=== PATIENT | male | born 1950 | race Asian ===

== ENCOUNTER 2018-06-27 08:42 | Day surgery (SDC) | payer OTHER, MEDICARE ==
[2018-06-21 14:57] VITALS: BMI 27.3
[2018-06-27 09:10] VITALS: TEMP 97.6
[2018-06-27] MEDS ORDERED: PHENYLEPHRINE HCL 10 MG/1 ML SINGLE DOSE VIAL ONE (10:54)
[2018-06-27 12:28] VITALS: BP 116/65; PULSE 60
--- NOTE | 2018-06-28 12:25 | PATH ---
Surgical Pathology Report Patient Name: LIAT RUIZ [facility]. Rec. #: [id number] /Age/Gender: 1950 (Age: 68) / M Account: [id number] Location: U-ENDOSCOPY Taken: 06/27/2018 Received: 06/27/2018 Reported: 06/28/2018 Physicians: Liban Bullock D.O. Specimen(s) Received A: SIGMOID POLYP B: DESCENDING COLON POLYP C: SPLENIC FLEXURE BIOPSY POLYPS D: PROXIMAL TRANSVERSE COLON POLYPS E: MID TRANSVERSE COLON POLYP F: POLYP SIGMOID #1 G: RECTAL POLYPS Clinical History Colon screening Postop diagnosis: Colon polyps, hemorrhoids Final Diagnosis A. SIGMOID COLON, POLYP, BIOPSY: TUBULAR ADENOMA. B. DESCENDING COLON, POLYP, BIOPSY: TUBULAR ADENOMA. C. COLON, SPLENIC FLEXURE, POLYPS, BIOPSY: TUBULAR ADENOMA(S). D. PROXIMAL TRANSVERSE COLON, POLYPS, POLYPECTOMY: TUBULAR ADENOMA(S). E. MID TRANSVERSE COLON, POLYP, BIOPSY: TUBULAR ADENOMA. F. SIGMOID COLON, POLYP, POLYPECTOMY: TUBULAR ADENOMA G. RECTUM, POLYPS, BIOPSY: HYPERPLASTIC POLYP(S). Electronically Signed Lena Rivers M.D. Gross Description A. Received in formalin, labeled "sigmoid polyp" are 2 webster, irregular portions of soft tissue measuring 0.1 and 0.3 cm. in greatest dimension. The specimens are submitted in toto in one cassette. B. Received in formalin, labeled "polyp descending colon" is a webster, irregular portion of soft tissue measuring 0.5 cm. in greatest dimension. The specimen is submitted in toto in one cassette. C. Received in formalin, labeled "polyps splenic flexure" are 2 webster, irregular portions of soft tissue measuring 0.2 and 0.3 cm. in greatest dimension. The specimens are submitted in toto in one cassette. D. Received in formalin, labeled "polyp proximal transverse colon" are 3 webster, irregular portions of soft tissue ranging from 0.2-0.3 cm. in greatest dimension. The specimens are submitted in toto in one cassette. E. Received in formalin, labeled "biopsy mid transverse colon polyp" is a webster, irregular portion of soft tissue measuring 0.4 cm. in greatest dimension. The specimen is submitted in toto in one cassette. F. Received in formalin, labeled "sigmoid polyp" is a webster, irregular portion of soft tissue measuring 0.3 cm. in greatest dimension. The specimen is submitted in toto in one cassette. G. Received in formalin, labeled "biopsy rectal polyps" are 4 webster, irregular portions of soft tissue ranging from 0.2-0.3 cm. in greatest dimension. The specimens are submitted in toto in one cassette. 06/27/2018 [facility]06/27/2018
== END 2018-06-27 11:25 | disposition home or self-care (01) ==
LOC: JASU-ENDO 08:42
PROVIDERS: ATTEND Internal Medicine Gastroenterology
PROC: 0DBL8ZX Excision of Transverse Colon, Via Natural or Artificial Opening Endoscopic, Diagnostic (ICD-10-PCS; 2018-06-27)
PROC: 0DBN8ZX Excision of Sigmoid Colon, Via Natural or Artificial Opening Endoscopic, Diagnostic (ICD-10-PCS; 2018-06-27)
PROC: 0DBP8ZX Excision of Rectum, Via Natural or Artificial Opening Endoscopic, Diagnostic (ICD-10-PCS; 2018-06-27)
PROC: 0DBM8ZX Excision of Descending Colon, Via Natural or Artificial Opening Endoscopic, Diagnostic (ICD-10-PCS; principal; 2018-06-27 10:00)
DX: Z12.11 Encounter for screening for malignant neoplasm of colon (principal); K62.1 Rectal polyp; K64.8 Other hemorrhoids; D12.0 Benign neoplasm of cecum; D12.4 Benign neoplasm of descending colon; D12.5 Benign neoplasm of sigmoid colon; D12.3 Benign neoplasm of transverse colon
CPT/HCPCS: 88305-TC

== ENCOUNTER 2022-01-27 04:13 | Day surgery (SDC) | payer OTHER ==
[2022-01-21 11:32] VITALS: BMI 26.2
[2022-01-27] MEDS ORDERED: LIDOCAINE 1%/EPI 1:100000 (20 ML MULTI DOSE VIAL) ONE (07:13)
[2022-01-27] MEDS ORDERED: LIDOCAINE 1%/EPI 1:100000 (20 ML MULTI DOSE VIAL) IJ ONE ×3 (07:28→08:22)
[2022-01-27] MEDS ORDERED: FENTANYL CITRATE/PF 50 MCG/ML VIAL ONE ×5 (07:52→10:15)
[2022-01-27] MEDS ORDERED: MIDAZOLAM HCL 2 MG/2 ML SINGLE DOSE VIAL ONE (07:52)
[2022-01-27] MEDS ORDERED: ROCURONIUM BROMIDE 50 MG/5 ML SYRINGE ONE ×2 (07:53)
[2022-01-27] MEDS ORDERED: SUCCINYLCHOLINE CHLORIDE 200 MG/10 ML SYRINGE ONE (07:53)
[2022-01-27] MEDS ORDERED: PROPOFOL 20 ML ONE ×2 (07:53)
[2022-01-27] MEDS ORDERED: oxyCODONE HCL 5 MG TABLET PO PRN (09:53)
[2022-01-27] MEDS ORDERED: ONDANSETRON 4 MG/2 ML VIAL IVPUSH PRN (09:53)
[2022-01-27] MEDS ORDERED: PROMETHAZINE HCL 25 MG/1 ML VIAL IVPB PRN (09:53)
[2022-01-27] MEDS ORDERED: LACTATED RINGERS SOLUTION 1,000 ML IV SCH (10:00)
[2022-01-27] MEDS ORDERED: FENTANYL CITRATE/PF 50 MCG/ML VIAL IVPUSH PRN (11:02)
[2022-01-27 13:10] VITALS: BP 124/60; PULSE 64; TEMP 96.7
== END 2022-01-27 13:30 | disposition home or self-care (01) ==
LOC: JASU-SURG 04:13
PROVIDERS: ATTEND Otolaryngology
PROC: 0KB30ZX Excision of Left Neck Muscle, Open Approach, Diagnostic (ICD-10-PCS; principal; 2022-01-27 08:00)
DX: C85.11 Unspecified B-cell lymphoma, lymph nodes of head, face, and neck (principal); E11.9 Type 2 diabetes mellitus without complications
CPT/HCPCS: 82962; 88305-TC; 94760

== ENCOUNTER 2022-05-13 07:06 | Day surgery (SDC) | payer OTHER ==
[2022-05-13] MEDS ORDERED: SODIUM CHLORIDE 250 ML IV ONE (09:00)
[2022-05-13] MEDS ORDERED: DIPHENHYDRAMINE 25 MG in SODIUM CHLORIDE 50 ML IVPB ONE (09:30)
[2022-05-13] MEDS ORDERED: ACETAMINOPHEN 325 MG TABLET (FP) PO ONE (09:30)
[2022-05-13 09:39] LABS: BASO % 1.3 % (0-2.0); HEMATOCRIT 44.4 % (35.4-49); HEMOGLOBIN 14.5 GM/dL (11.7-16.9); LYMPH % 25.4 % (8-40); MCH 27.6 pg (25.7-33.7); MCHC 32.8 g/dl (32.0-35.9); MEAN CELL VOLUME 84.3 fl (80-96); MEAN PLT VOLUME 7.2 fl (7.5-11.1); MONO % 12.5 % (3.8-10.2); NEUT % 54.8 % (42.8-82.8); PLATELET COUNT 256 10^3/uL (134-434); RBC 5.26 M/mm3 (4.00-5.60); WHITE BLOOD COUNT 8.9 K/mm3 (4.0-10.0)
[2022-05-13 10:00] LABS: MAGNESIUM 1.8 mg/dL (1.8-2.4)
[2022-05-13] MEDS ORDERED: RITUXIMAB-ABBS 500 MG, RITUXIMAB-ABBS 164 MG in SODIUM CHLORIDE 597.6 ML IVPB ONE (10:00)
[2022-05-13 10:02] LABS: BLOOD UREA NITROGEN 18.5 mg/dL (7-18); CALCIUM 9.9 mg/dL (8.5-10.1)
[2022-05-13 10:04] LABS: CREATININE 1.2 mg/dL (0.55-1.3); URIC ACID 4.1 mg/dL (2.6-7.2)
[2022-05-13 10:05] LABS: BILIRUBIN,DIRECT 0.1 mg/dL (0.0-0.2)
[2022-05-13 10:06] LABS: TOT PROT 8.2 g/dl (6.4-8.2)
[2022-05-13 10:07] LABS: BILIRUBIN,TOTAL 0.5 mg/dL (0.2-1)
[2022-05-13 16:54] VITALS: TEMP 97.7
[2022-05-13 17:01] VITALS: BP 121/53; PULSE 84; RESP 18
== END 2022-05-13 15:45 | disposition home or self-care (01) ==
LOC: JONCCHEMO 07:06
PROVIDERS: ATTEND Internal Medicine Hematology & Oncology
PROC: 3E03305 Introduction of Other Antineoplastic into Peripheral Vein, Percutaneous Approach (ICD-10-PCS; principal; 2022-05-13)
PROC: 3E033GC Introduction of Other Therapeutic Substance into Peripheral Vein, Percutaneous Approach (ICD-10-PCS; 2022-05-13)
PROC: 3E0337Z Introduction of Electrolytic and Water Balance Substance into Peripheral Vein, Percutaneous Approach (ICD-10-PCS; 2022-05-13)
DX: Z51.11 Encounter for antineoplastic chemotherapy (principal); C85.80 Other specified types of non-Hodgkin lymphoma, unspecified site
CPT/HCPCS: 36415; 80048; 80076; 83615; 83735; 84550; 85025; 96375; 96413; 96415; Q5115

== ENCOUNTER 2022-05-20 07:40 | Day surgery (SDC) | payer OTHER ==
[2022-05-20] MEDS ORDERED: SODIUM CHLORIDE 250 ML IV ONE (09:00)
[2022-05-20] MEDS ORDERED: ACETAMINOPHEN 325 MG TABLET (FP) PO ONE (09:30)
[2022-05-20] MEDS ORDERED: DIPHENHYDRAMINE 25 MG in SODIUM CHLORIDE 50 ML IVPB ONE (09:30)
[2022-05-20] MEDS ORDERED: DEXAMETHASONE SOD PHOSPHATE 20 MG/5 ML VIAL IVPB ONE (09:56)
[2022-05-20] MEDS ORDERED: RITUXIMAB-ABBS 500 MG, RITUXIMAB-ABBS 164 MG in SODIUM CHLORIDE 597.6 ML IVPB ONE (10:00)
[2022-05-20 10:36] VITALS: RESP 18
[2022-05-20 10:56] LABS: BASO % 1.3 % (0-2.0); EOS % 6.8 % (0-4.5); HEMATOCRIT 45.7 % (35.4-49); HEMOGLOBIN 14.9 GM/dL (11.7-16.9); LYMPH % 26.8 % (8-40); MCH 27.2 pg (25.7-33.7); MCHC 32.6 g/dl (32.0-35.9); MEAN CELL VOLUME 83.4 fl (80-96); MEAN PLT VOLUME 7.5 fl (7.5-11.1); MONO % 11.4 % (3.8-10.2); NEUT % 53.7 % (42.8-82.8); PLATELET COUNT 311 10^3/uL (134-434); RBC 5.48 M/mm3 (4.00-5.60); RDW 15.9 % (11.9-15.9); WHITE BLOOD COUNT 9.5 K/mm3 (4.0-10.0)
[2022-05-20 11:18] LABS: MAGNESIUM 1.9 mg/dL (1.8-2.4)
[2022-05-20 11:19] LABS: BLOOD UREA NITROGEN 13.4 mg/dL (7-18)
[2022-05-20 11:21] LABS: CREATININE 1.1 mg/dL (0.55-1.3); URIC ACID 4.3 mg/dL (2.6-7.2)
[2022-05-20 11:22] LABS: BILIRUBIN,DIRECT 0.1 mg/dL (0.0-0.2)
[2022-05-20 11:23] LABS: TOT PROT 8.3 g/dl (6.4-8.2)
[2022-05-20 11:24] LABS: BILIRUBIN,TOTAL 0.5 mg/dL (0.2-1)
[2022-05-20] MEDS ORDERED: DEXAMETHASONE INJECTION 8 MG in SODIUM CHLORIDE 50 ML IVPUSH ONE (12:00)
[2022-05-20] MEDS ORDERED: INSULIN (NOVOLOG) ASPART 100 UNITS/ML 10ML VIAL SQ ONE (17:53)
[2022-05-20 18:18] VITALS: BP 112/53; PULSE 73; TEMP 97.5
== END 2022-05-20 18:15 | disposition home or self-care (01) ==
LOC: JONCCHEMO 07:40
PROVIDERS: ATTEND Internal Medicine Hematology & Oncology
DX: Z51.11 Encounter for antineoplastic chemotherapy (principal); C85.80 Other specified types of non-Hodgkin lymphoma, unspecified site
CPT/HCPCS: 36415; 80048; 80076; 82962; 83615; 83735; 84550; 85025; 96375; 96413; 96415; J1100; Q5115

== ENCOUNTER 2022-05-27 08:37 | Day surgery (SDC) | payer OTHER ==
[2022-05-27] MEDS ORDERED: SODIUM CHLORIDE 250 ML IV ONE (09:00)
[2022-05-27] MEDS ORDERED: DEXAMETHASONE SODIUM PHOSPHATE 8 MG, DIPHENHYDRAMINE 25 MG in SODIUM CHLORIDE 100 ML IVPB ONE (09:30)
[2022-05-27] MEDS ORDERED: ACETAMINOPHEN 325 MG TABLET (FP) PO ONE (09:30)
[2022-05-27 09:43] LABS: BASO % 1.2 % (0-2.0); EOS % 6.4 % (0-4.5); HEMATOCRIT 44.5 % (35.4-49); HEMOGLOBIN 14.8 GM/dL (11.7-16.9); LYMPH % 26.9 % (8-40); MCHC 33.2 g/dl (32.0-35.9); MEAN CELL VOLUME 84.3 fl (80-96); NEUT % 56.5 % (42.8-82.8); PLATELET COUNT 298 10^3/uL (134-434); RBC 5.28 M/mm3 (4.00-5.60); RDW 16.2 % (11.9-15.9); WHITE BLOOD COUNT 9.6 K/mm3 (4.0-10.0)
[2022-05-27] MEDS ORDERED: RITUXIMAB-ABBS 500 MG, RITUXIMAB-ABBS 164 MG in SODIUM CHLORIDE 597.6 ML IVPB ONE (10:00)
[2022-05-27 11:03] LABS: BLOOD UREA NITROGEN 15.9 mg/dL (7-18); MAGNESIUM 2.2 mg/dL (1.8-2.4)
[2022-05-27 11:06] LABS: BILIRUBIN,DIRECT 0.2 mg/dL (0.0-0.2); CREATININE 1.2 mg/dL (0.55-1.3)
[2022-05-27 11:07] LABS: BILIRUBIN,TOTAL 0.6 mg/dL (0.2-1)
[2022-05-27 15:05] VITALS: RESP 18; TEMP 98.1
[2022-05-27 16:45] VITALS: BP 112/64; PULSE 77
== END 2022-05-27 16:53 | disposition home or self-care (01) ==
LOC: JONCCHEMO 08:37
PROVIDERS: ATTEND Internal Medicine Hematology & Oncology
DX: Z51.11 Encounter for antineoplastic chemotherapy (principal); C85.80 Other specified types of non-Hodgkin lymphoma, unspecified site
CPT/HCPCS: 36415; 80048; 80076; 82962; 83615; 83735; 84550; 85025; 96367; 96413; 96415; Q5115

== ENCOUNTER 2022-06-03 08:24 | Day surgery (SDC) | payer OTHER ==
[2022-06-03] MEDS ORDERED: SODIUM CHLORIDE 250 ML IV ONE (09:00)
[2022-06-03 09:05] LABS: BASO % 0.9 % (0-2.0); EOS % 6.4 % (0-4.5); HEMATOCRIT 42.1 % (35.4-49); HEMOGLOBIN 13.9 GM/dL (11.7-16.9); LYMPH % 29.2 % (8-40); MCH 27.6 pg (25.7-33.7); MCHC 32.9 g/dl (32.0-35.9); MEAN PLT VOLUME 7.6 fl (7.5-11.1); MONO % 7.8 % (3.8-10.2); NEUT % 55.7 % (42.8-82.8); PLATELET COUNT 279 10^3/uL (134-434); RBC 5.02 M/mm3 (4.00-5.60); RDW 16.3 % (11.9-15.9); WHITE BLOOD COUNT 9.7 K/mm3 (4.0-10.0)
[2022-06-03 09:26] LABS: BLOOD UREA NITROGEN 10.2 mg/dL (7-18); CALCIUM 9.7 mg/dL (8.5-10.1)
[2022-06-03 09:27] LABS: ALBUMIN 3.6 g/dl (3.4-5.0)
[2022-06-03 09:29] LABS: BILIRUBIN,DIRECT 0.1 mg/dL (0.0-0.2); URIC ACID 3.9 mg/dL (2.6-7.2)
[2022-06-03] MEDS ORDERED: ACETAMINOPHEN 325 MG TABLET (FP) PO ONE (09:30)
[2022-06-03] MEDS ORDERED: DEXAMETHASONE SODIUM PHOSPHATE 8 MG, DIPHENHYDRAMINE 25 MG in SODIUM CHLORIDE 100 ML IVPB ONE (09:30)
[2022-06-03 09:31] LABS: BILIRUBIN,TOTAL 0.2 mg/dL (0.2-1); TOT PROT 7.4 g/dl (6.4-8.2)
[2022-06-03] MEDS ORDERED: RITUXIMAB-ABBS 500 MG, RITUXIMAB-ABBS 164 MG in SODIUM CHLORIDE 597.6 ML IVPB ONE (10:00)
[2022-06-03 15:12] VITALS: PULSE 69; TEMP 98.2
[2022-06-03 17:28] VITALS: BP 116/60; RESP 20
== END 2022-06-03 16:40 | disposition home or self-care (01) ==
LOC: JONCCHEMO 08:24
PROVIDERS: ATTEND Internal Medicine Hematology & Oncology
DX: Z51.11 Encounter for antineoplastic chemotherapy (principal); C85.80 Other specified types of non-Hodgkin lymphoma, unspecified site
CPT/HCPCS: 36415; 80048; 80076; 82962; 83615; 83735; 84550; 85025; 96361; 96365; 96413; 96415; Q5115

== ENCOUNTER 2022-07-01 07:51 | Day surgery (SDC) | payer OTHER ==
[2022-07-01 09:08] LABS: BASO % 1.4 % (0-2.0); EOS % 6.4 % (0-4.5); HEMATOCRIT 43.3 % (35.4-49); HEMOGLOBIN 14.2 GM/dL (11.7-16.9); LYMPH % 37.7 % (8-40); MCH 27.8 pg (25.7-33.7); MCHC 32.9 g/dl (32.0-35.9); MEAN CELL VOLUME 84.7 fl (80-96); MEAN PLT VOLUME 7.1 fl (7.5-11.1); MONO % 10.7 % (3.8-10.2); NEUT % 43.8 % (42.8-82.8); PLATELET COUNT 307 10^3/uL (134-434); RBC 5.12 M/mm3 (4.00-5.60); WHITE BLOOD COUNT 8.8 K/mm3 (4.0-10.0)
[2022-07-01 09:32] LABS: CALCIUM 10.1 mg/dL (8.5-10.1)
[2022-07-01 09:33] LABS: ALBUMIN 3.9 g/dl (3.4-5.0); BLOOD UREA NITROGEN 12.9 mg/dL (7-18)
[2022-07-01 09:35] LABS: BILIRUBIN,DIRECT 0.2 mg/dL (0.0-0.2); CREATININE 1.1 mg/dL (0.55-1.3); URIC ACID 3.6 mg/dL (2.6-7.2)
[2022-07-01 09:37] LABS: BILIRUBIN,TOTAL 0.5 mg/dL (0.2-1)
[2022-07-01] MEDS ORDERED: ACETAMINOPHEN 325 MG TABLET (FP) PO ONE (10:00)
[2022-07-01] MEDS ORDERED: SODIUM CHLORIDE 250 ML IV ONE (10:00)
[2022-07-01] MEDS ORDERED: DEXAMETHASONE SODIUM PHOSPHATE 8 MG, DIPHENHYDRAMINE 25 MG in SODIUM CHLORIDE 100 ML IVPB ONE (10:00)
[2022-07-01] MEDS ORDERED: RITUXIMAB ABBS IVPB ONE (10:30)
[2022-07-01] MEDS ORDERED: SODIUM CHLORIDE IVPB ONE (10:30)
[2022-07-01 15:26] VITALS: RESP 18; TEMP 98.3
[2022-07-01 15:45] VITALS: BP 112/55; PULSE 84
[2022-07-05 00:11] LABS: BETA-2-MICROGLOBULIN 1.6 mg/L (0.6-2.4)
[2022-07-05 21:06] LABS: IMMUNOGLOBULIN D 1.76 mg/dL (<14.11)
== END 2022-07-01 16:00 | disposition home or self-care (01) ==
LOC: JONCCHEMO 07:51
PROVIDERS: ATTEND Internal Medicine Hematology & Oncology
DX: C85.80 Other specified types of non-Hodgkin lymphoma, unspecified site (principal)
CPT/HCPCS: 36415; 80048; 80076; 82232; 82784; 82785; 83615; 83735; 84550; 85025; 86704; 87517; 96367; 96413; 96415; Q5115

== ENCOUNTER 2022-07-29 08:19 | Day surgery (SDC) | payer OTHER ==
[2022-07-29 08:38] LABS: BASO % 2.5 % (0-2.0); EOS % 8.5 % (0-4.5); HEMATOCRIT 45.2 % (35.4-49); HEMOGLOBIN 14.8 GM/dL (11.7-16.9); LYMPH % 37.9 % (8-40); MCH 27.9 pg (25.7-33.7); MCHC 32.7 g/dl (32.0-35.9); MEAN CELL VOLUME 85.5 fl (80-96); MONO % 10.8 % (3.8-10.2); NEUT % 40.3 % (42.8-82.8); PLATELET COUNT 297 10^3/uL (134-434); RBC 5.29 M/mm3 (4.00-5.60); WHITE BLOOD COUNT 8.1 K/mm3 (4.0-10.0)
[2022-07-29 08:56] LABS: ALBUMIN 3.7 g/dl (3.4-5.0); BLOOD UREA NITROGEN 12.3 mg/dL (7-18); CALCIUM 9.4 mg/dL (8.5-10.1)
[2022-07-29 08:59] LABS: BILIRUBIN,DIRECT 0.2 mg/dL (0.0-0.2); URIC ACID 3.5 mg/dL (2.6-7.2)
[2022-07-29 09:01] LABS: BILIRUBIN,TOTAL 0.4 mg/dL (0.2-1); TOT PROT 7.5 g/dl (6.4-8.2)
[2022-07-29] MEDS ORDERED: SODIUM CHLORIDE IVPB ONE (10:00)
[2022-07-29] MEDS ORDERED: RITUXIMAB ABBS IVPB ONE (10:00)
[2022-07-29] MEDS ORDERED: ACETAMINOPHEN 325 MG TABLET (FP) PO ONE (10:00)
[2022-07-29] MEDS ORDERED: SODIUM CHLORIDE 250 ML IV ONE (10:00)
[2022-07-29] MEDS ORDERED: DEXAMETHASONE SODIUM PHOSPHATE 8 MG, DIPHENHYDRAMINE 25 MG in SODIUM CHLORIDE 100 ML IVPB ONE (10:00)
[2022-07-29 17:23] VITALS: RESP 18; TEMP 97.8
[2022-07-29 17:29] VITALS: BP 130/60; PULSE 83
== END 2022-07-29 17:15 | disposition home or self-care (01) ==
LOC: JONCCHEMO 08:19
PROVIDERS: ATTEND Internal Medicine Hematology & Oncology
DX: Z51.11 Encounter for antineoplastic chemotherapy (principal); C85.80 Other specified types of non-Hodgkin lymphoma, unspecified site
CPT/HCPCS: 36415; 80048; 80076; 82232; 82784; 83615; 83735; 84550; 85025; 96367; 96413; 96415; Q5115

== ENCOUNTER 2022-08-26 07:25 | Day surgery (SDC) | payer OTHER ==
[2022-08-26] MEDS ORDERED: SODIUM CHLORIDE 250 ML IV ONE (09:00)
[2022-08-26] MEDS ORDERED: DEXAMETHASONE SODIUM PHOSPHATE 8 MG, DIPHENHYDRAMINE 25 MG in SODIUM CHLORIDE 100 ML IVPB ONE (09:30)
[2022-08-26] MEDS ORDERED: ACETAMINOPHEN 325 MG TABLET (FP) PO ONE (09:30)
[2022-08-26 09:53] LABS: EOS % 6.7 % (0-4.5); HEMATOCRIT 43.2 % (35.4-49); LYMPH % 31.3 % (8-40); MCH 27.8 pg (25.7-33.7); MCHC 32.3 g/dl (32.0-35.9); MEAN CELL VOLUME 85.9 fl (80-96); MEAN PLT VOLUME 7.2 fl (7.5-11.1); MONO % 15.9 % (3.8-10.2); NEUT % 42.1 % (42.8-82.8); PLATELET COUNT 494 10^3/uL (134-434); RBC 5.03 M/mm3 (4.00-5.60); RDW 16.2 % (11.9-15.9); WHITE BLOOD COUNT 9.5 K/mm3 (4.0-10.0)
[2022-08-26] MEDS ORDERED: RITUXIMAB-ABBS 500 MG, RITUXIMAB-ABBS 164 MG in SODIUM CHLORIDE 597.6 ML IVPB ONE (10:00)
[2022-08-26 10:20] LABS: ALBUMIN 3.4 g/dl (3.4-5.0); BLOOD UREA NITROGEN 11.7 mg/dL (7-18); CALCIUM 9.8 mg/dL (8.5-10.1); MAGNESIUM 2.1 mg/dL (1.8-2.4)
[2022-08-26 10:23] LABS: BILIRUBIN,DIRECT 0.2 mg/dL (0.0-0.2); CREATININE 1.1 mg/dL (0.55-1.3); URIC ACID 3.1 mg/dL (2.6-7.2)
[2022-08-26 10:24] LABS: BILIRUBIN,TOTAL 0.6 mg/dL (0.2-1)
[2022-08-26 10:25] LABS: TOT PROT 7.4 g/dl (6.4-8.2)
[2022-08-26 16:04] VITALS: TEMP 97.7
[2022-08-26 16:10] VITALS: BP 117/60; PULSE 71; RESP 16
== END 2022-08-26 16:17 | disposition home or self-care (01) ==
LOC: JONCCHEMO 07:25
PROVIDERS: ATTEND Internal Medicine Hematology & Oncology
DX: Z51.11 Encounter for antineoplastic chemotherapy (principal); C85.80 Other specified types of non-Hodgkin lymphoma, unspecified site
CPT/HCPCS: 36415; 80048; 80076; 82232; 82784; 83615; 83735; 84550; 85025; 96367; 96413; 96415; Q5115

== ENCOUNTER 2022-09-02 15:39 | Inpatient (IN) | payer OTHER ==
[2022-09-02 16:03] VITALS: BMI 26.7
[2022-09-02 18:05] LABS: BASO % 0.7 % (0-2.0); EOS % 2.8 % (0-4.5); HEMATOCRIT 43.9 % (35.4-49); HEMOGLOBIN 14.1 GM/dL (11.7-16.9); LYMPH % 11.3 % (8-40); MCH 27.6 pg (25.7-33.7); MCHC 32.1 g/dl (32.0-35.9); MEAN CELL VOLUME 86.1 fl (80-96); MEAN PLT VOLUME 7.4 fl (7.5-11.1); MONO % 9.3 % (3.8-10.2); NEUT % 75.9 % (42.8-82.8); PLATELET COUNT 322 10^3/uL (134-434); RDW 16.9 % (11.9-15.9); WHITE BLOOD COUNT 8.3 K/mm3 (4.0-10.0)
[2022-09-02 18:16] LABS: INR 1.88 (0.83-1.09); PROTHROMBIN TIME (PATIENT) 21.7 SEC (9.7-13.0)
[2022-09-02 18:19] LABS: ACTIVATED PTT 40.6 SECONDS (25.2-36.5)
[2022-09-02 18:32] LABS: CALCIUM 9.4 mg/dL (8.5-10.1)
[2022-09-02 18:33] LABS: ALBUMIN 3.5 g/dl (3.4-5.0); BLOOD UREA NITROGEN 12.8 mg/dL (7-18)
[2022-09-02 18:36] LABS: CREATININE 1.2 mg/dL (0.55-1.3)
[2022-09-02 18:37] LABS: TOT PROT 7.8 g/dl (6.4-8.2)
[2022-09-02 18:38] LABS: BILIRUBIN,TOTAL 0.6 mg/dL (0.2-1)
[2022-09-02] MEDS ORDERED: DEXAMETHASONE SOD PHOSPHATE 4 MG/1 ML VIAL IVPUSH ONE (20:05)
[2022-09-02] MEDS ORDERED: DEXAMETHASONE SOD PHOSPHATE 10 MG/1 ML VIAL ONE ×2 (21:07→21:25)
[2022-09-02] MEDS ORDERED: REMDESIVIR 200 MG in SODIUM CHLORIDE 250 ML IVPB ONE (22:39)
[2022-09-03] MEDS: metFORMIN HCL 500 MG TABLET (FP) PO SCH ×2 (06:48→16:02)
[2022-09-03] MEDS: APIXABAN 5 MG TABLET PO SCH ×2 (09:48→23:03)
[2022-09-03] MEDS: LOSARTAN POTASSIUM 25 MG TABLET PO SCH (09:48)
[2022-09-03] MEDS: EZETIMIBE 10 MG TABLET (FP) PO SCH (09:48)
[2022-09-03] MEDS: metoPROLOL SUCCINATE 25 MG TAB.SR.24H (FP) PO SCH ×2 (09:48→23:03)
[2022-09-03 12:26] LABS: EOS % 1.1 % (0-4.5); HEMATOCRIT 43.5 % (35.4-49); HEMOGLOBIN 14.1 GM/dL (11.7-16.9); LYMPH % 14.3 % (8-40); MCHC 32.5 g/dl (32.0-35.9); MEAN PLT VOLUME 7.5 fl (7.5-11.1); MONO % 11.4 % (3.8-10.2); NEUT % 69.2 % (42.8-82.8); PLATELET COUNT 318 10^3/uL (134-434); RBC 5.06 M/mm3 (4.00-5.60); RDW 16.7 % (11.9-15.9); WHITE BLOOD COUNT 6.3 K/mm3 (4.0-10.0)
[2022-09-03 12:51] LABS: BLOOD UREA NITROGEN 14.2 mg/dL (7-18); CALCIUM 9.7 mg/dL (8.5-10.1)
[2022-09-03 12:52] LABS: ALBUMIN 3.2 g/dl (3.4-5.0)
[2022-09-03 12:54] LABS: CREATININE 1.2 mg/dL (0.55-1.3)
[2022-09-03 12:55] LABS: BILIRUBIN,TOTAL 0.7 mg/dL (0.2-1); TOT PROT 7.4 g/dl (6.4-8.2)
[2022-09-03 13:12] LABS: ERYTHROCYTE SEDIMENTATION RATE 58 mm/hr (0-20)
[2022-09-03] MEDS ORDERED: DEXAMETHASONE SOD PHOSPHATE 4 MG/1 ML VIAL IVPUSH SCH (14:15)
[2022-09-03] MEDS: CEFTRIAXONE 1 GM in DEXTROSE 5%-WATER - 50 ML IVPB SCH (16:01)
[2022-09-03 16:05] LABS: PH,URINE 5.5 (5.0-8.0); URINE APPEARANCE CLEAR; URINE BILIRUBIN NEGATIVE (NEGATIVE); URINE COLOR YELLOW; URINE GLUCOSE (UA) NEGATIVE (NEGATIVE); URINE KETONE NEGATIVE (NEGATIVE); URINE LEUK ESTERASE NEGATIVE (NEGATIVE); URINE NITRITE NEGATIVE (NEGATIVE); URINE PROTEIN NEGATIVE (NEGATIVE)
[2022-09-03] MEDS: ATORVASTATIN CA 80 MG TABLET (FP) PO SCH (23:03)
[2022-09-04] MEDS: REMDESIVIR 100 MG in SODIUM CHLORIDE 250 ML IVPB SCH (03:28)
[2022-09-04] MEDS: metFORMIN HCL 500 MG TABLET (FP) PO SCH ×2 (06:20→17:29)
[2022-09-04] MEDS: EZETIMIBE 10 MG TABLET (FP) PO SCH (10:13)
[2022-09-04] MEDS: APIXABAN 5 MG TABLET PO SCH ×2 (10:13→22:08)
[2022-09-04] MEDS: metoPROLOL SUCCINATE 25 MG TAB.SR.24H (FP) PO SCH ×2 (10:13→22:08)
[2022-09-04] MEDS: LOSARTAN POTASSIUM 25 MG TABLET PO SCH (10:13)
[2022-09-04] MEDS: DEXAMETHASONE SOD PHOSPHATE 4 MG/1 ML VIAL IVPUSH SCH (10:13)
[2022-09-04] MEDS: CEFTRIAXONE 1 GM in DEXTROSE 5%-WATER - 50 ML IVPB SCH (10:13)
[2022-09-04 10:57] LABS: BASO % 1.7 % (0-2.0); EOS % 1.6 % (0-4.5); HEMATOCRIT 44.2 % (35.4-49); HEMOGLOBIN 14.1 GM/dL (11.7-16.9); LYMPH % 18.8 % (8-40); MCH 27.3 pg (25.7-33.7); MCHC 31.9 g/dl (32.0-35.9); MEAN CELL VOLUME 85.5 fl (80-96); MEAN PLT VOLUME 7.8 fl (7.5-11.1); MONO % 10.4 % (3.8-10.2); NEUT % 67.5 % (42.8-82.8); PLATELET COUNT 310 10^3/uL (134-434); RBC 5.17 M/mm3 (4.00-5.60); RDW 16.3 % (11.9-15.9); WHITE BLOOD COUNT 7.4 K/mm3 (4.0-10.0)
[2022-09-04 11:17] LABS: CALCIUM 9.3 mg/dL (8.5-10.1)
[2022-09-04 11:18] LABS: ALBUMIN 3.1 g/dl (3.4-5.0)
[2022-09-04 11:23] LABS: BILIRUBIN,TOTAL 0.3 mg/dL (0.2-1)
[2022-09-04] MEDS: ATORVASTATIN CA 80 MG TABLET (FP) PO SCH (22:08)
[2022-09-05] MEDS: REMDESIVIR 100 MG in SODIUM CHLORIDE 250 ML IVPB SCH (01:46)
[2022-09-05] MEDS: metFORMIN HCL 500 MG TABLET (FP) PO SCH ×2 (06:02→17:38)
[2022-09-05] MEDS: DEXAMETHASONE SOD PHOSPHATE 4 MG/1 ML VIAL IVPUSH SCH (10:10)
[2022-09-05] MEDS: CEFTRIAXONE 1 GM in DEXTROSE 5%-WATER - 50 ML IVPB SCH (10:12)
[2022-09-05] MEDS: APIXABAN 5 MG TABLET PO SCH ×2 (10:13→21:22)
[2022-09-05] MEDS: LOSARTAN POTASSIUM 25 MG TABLET PO SCH (10:13)
[2022-09-05] MEDS: EZETIMIBE 10 MG TABLET (FP) PO SCH (10:13)
[2022-09-05] MEDS: metoPROLOL SUCCINATE 25 MG TAB.SR.24H (FP) PO SCH ×2 (10:13→21:22)
[2022-09-05 16:48] VITALS: RESP 18
[2022-09-05] MEDS: ATORVASTATIN CA 80 MG TABLET (FP) PO SCH (21:22)
[2022-09-06] MEDS: REMDESIVIR 100 MG in SODIUM CHLORIDE 250 ML IVPB SCH (02:00)
[2022-09-06] MEDS: metFORMIN HCL 500 MG TABLET (FP) PO SCH ×2 (06:53→16:25)
[2022-09-06] MEDS: APIXABAN 5 MG TABLET PO SCH ×2 (10:05→21:23)
[2022-09-06] MEDS: EZETIMIBE 10 MG TABLET (FP) PO SCH (10:05)
[2022-09-06] MEDS: CEFTRIAXONE 1 GM in DEXTROSE 5%-WATER - 50 ML IVPB SCH (10:05)
[2022-09-06] MEDS: DEXAMETHASONE SOD PHOSPHATE 4 MG/1 ML VIAL IVPUSH SCH (10:06)
[2022-09-06] MEDS: LOSARTAN POTASSIUM 25 MG TABLET PO SCH (11:18)
[2022-09-06] MEDS: metoPROLOL SUCCINATE 25 MG TAB.SR.24H (FP) PO SCH ×2 (11:19→21:51)
[2022-09-06] MEDS: PANTOPRAZOLE 20 MG TABLET PO SCH (16:25)
[2022-09-06] MEDS: ATORVASTATIN CA 80 MG TABLET (FP) PO SCH (21:23)
[2022-09-07] MEDS: REMDESIVIR 100 MG in SODIUM CHLORIDE 250 ML IVPB SCH (01:48)
[2022-09-07] MEDS: metFORMIN HCL 500 MG TABLET (FP) PO SCH ×2 (06:36→16:58)
[2022-09-07] MEDS ORDERED: LOSARTAN POTASSIUM 25 MG TABLET PO SCH (10:00)
[2022-09-07] MEDS: EZETIMIBE 10 MG TABLET (FP) PO SCH (11:00)
[2022-09-07] MEDS: PANTOPRAZOLE 20 MG TABLET PO SCH (11:00)
[2022-09-07] MEDS: metoPROLOL SUCCINATE 25 MG TAB.SR.24H (FP) PO SCH (11:00)
[2022-09-07] MEDS: DEXAMETHASONE SOD PHOSPHATE 4 MG/1 ML VIAL IVPUSH SCH (11:01)
[2022-09-07] MEDS: APIXABAN 5 MG TABLET PO SCH (11:01)
[2022-09-07] MEDS: CEFTRIAXONE 1 GM in DEXTROSE 5%-WATER - 50 ML IVPB SCH (11:02)
[2022-09-07 13:10] LABS: BASO % 1.2 % (0-2.0); EOS % 2.1 % (0-4.5); HEMATOCRIT 46.9 % (35.4-49); HEMOGLOBIN 14.6 GM/dL (11.7-16.9); LYMPH % 26.5 % (8-40); MCH 27.1 pg (25.7-33.7); MCHC 31.2 g/dl (32.0-35.9); MEAN CELL VOLUME 86.9 fl (80-96); MEAN PLT VOLUME 8.2 fl (7.5-11.1); MONO % 7.7 % (3.8-10.2); NEUT % 62.5 % (42.8-82.8); PLATELET COUNT 338 10^3/uL (134-434); RDW 16.8 % (11.9-15.9); WHITE BLOOD COUNT 13.5 K/mm3 (4.0-10.0)
[2022-09-07 13:36] LABS: ALBUMIN 3.5 g/dl (3.4-5.0); CALCIUM 9.4 mg/dL (8.5-10.1)
[2022-09-07 13:39] LABS: CREATININE 1.2 mg/dL (0.55-1.3)
[2022-09-07 13:40] LABS: BILIRUBIN,TOTAL 0.5 mg/dL (0.2-1)
[2022-09-07 13:41] LABS: TOT PROT 7.5 g/dl (6.4-8.2)
[2022-09-07 17:03] VITALS: BP 141/63; PULSE 69; TEMP 97.8
== END 2022-09-07 17:37 | disposition home or self-care (01) | DRG 177 ==
LOC: JER 15:39 → JERBED 20:06 → J5S 09-03 05:42
PROVIDERS: ADMIT Internal Medicine; ATTEND Internal Medicine
PROC: XW033E5 Introduction of Remdesivir Anti-infective into Peripheral Vein, Percutaneous Approach, New Technology Group 5 (ICD-10-PCS; principal; 2022-09-02)
PROC: 3E0333Z Introduction of Anti-inflammatory into Peripheral Vein, Percutaneous Approach (ICD-10-PCS; 2022-09-02)
DX: U07.1 COVID-19 (principal); J12.82 Pneumonia due to coronavirus disease 2019; C85.90 Non-Hodgkin lymphoma, unspecified, unspecified site; E11.9 Type 2 diabetes mellitus without complications; I10 Essential (primary) hypertension; E78.5 Hyperlipidemia, unspecified; I25.10 Atherosclerotic heart disease of native coronary artery without angina pectoris; N40.0 Benign prostatic hyperplasia without lower urinary tract symptoms; R09.02 Hypoxemia; Z95.1 Presence of aortocoronary bypass graft
CPT/HCPCS: 0241U-QW; 36415; 71045-TC-FY; 76775-TC; 76937; 80053; 81003; 82550; 83735; 85025; 85379; 85610; 85651; 85730; 86140; 87040; 87086; 87899; 93005; 93010; 99285-25; C9399

== ENCOUNTER 2022-09-23 08:12 | Day surgery (SDC) | payer OTHER ==
[2022-09-23 09:49] LABS: BASO % 1.5 % (0-2.0); EOS % 8.9 % (0-4.5); HEMATOCRIT 41.3 % (35.4-49); HEMOGLOBIN 13.5 GM/dL (11.7-16.9); LYMPH % 45.2 % (8-40); MCH 28.3 pg (25.7-33.7); MCHC 32.6 g/dl (32.0-35.9); MEAN CELL VOLUME 86.9 fl (80-96); MEAN PLT VOLUME 7.4 fl (7.5-11.1); MONO % 7.1 % (3.8-10.2); NEUT % 37.3 % (42.8-82.8); PLATELET COUNT 276 10^3/uL (134-434); RBC 4.75 M/mm3 (4.00-5.60); RDW 16.7 % (11.9-15.9); WHITE BLOOD COUNT 7.1 K/mm3 (4.0-10.0)
[2022-09-23] MEDS ORDERED: SODIUM CHLORIDE 250 ML IV ONE (10:00)
[2022-09-23 10:10] LABS: CALCIUM 9.8 mg/dL (8.5-10.1); MAGNESIUM 1.6 mg/dL (1.8-2.4)
[2022-09-23 10:11] LABS: ALBUMIN 3.6 g/dl (3.4-5.0); BLOOD UREA NITROGEN 10.1 mg/dL (7-18)
[2022-09-23 10:13] LABS: BILIRUBIN,DIRECT 0.1 mg/dL (0.0-0.2); CREATININE 1.2 mg/dL (0.55-1.3)
[2022-09-23 10:14] LABS: URIC ACID 5.1 mg/dL (2.6-7.2)
[2022-09-23 10:15] LABS: TOT PROT 7.5 g/dl (6.4-8.2)
[2022-09-23 10:16] LABS: BILIRUBIN,TOTAL 0.6 mg/dL (0.2-1)
[2022-09-23] MEDS ORDERED: DEXAMETHASONE INJECTION 8 MG, DIPHENHYDRAMINE 25 MG in SODIUM CHLORIDE 100 ML IVPB ONE (10:30)
[2022-09-23] MEDS ORDERED: MAGNESIUM 2GM/50ML STERILE WATER IVPB IVPB ONE (10:30)
[2022-09-23] MEDS ORDERED: ACETAMINOPHEN 325 MG TABLET (FP) PO ONE (10:30)
[2022-09-23] MEDS ORDERED: INSULIN (NOVOLOG) ASPART 100 UNITS/ML 10ML VIAL SQ ONE (10:30)
[2022-09-23] MEDS ORDERED: SODIUM CHLORIDE IVPB ONE (11:00)
[2022-09-23] MEDS ORDERED: RITUXIMAB ABBS IVPB ONE (11:00)
[2022-09-23 16:20] VITALS: RESP 18
[2022-09-23 16:28] VITALS: BP 97/46; PULSE 69; TEMP 97.9
== END 2022-09-23 16:29 | disposition home or self-care (01) ==
LOC: JONCCHEMO 08:12
PROVIDERS: ATTEND Internal Medicine Hematology & Oncology
DX: Z51.11 Encounter for antineoplastic chemotherapy (principal); C85.80 Other specified types of non-Hodgkin lymphoma, unspecified site
CPT/HCPCS: 36415; 80048; 80076; 82784; 83615; 83735; 84550; 85025; 96367; 96413; 96415; J1100; Q5115